=== PATIENT | male | born 1965 | race Caucasian/White ===

== ENCOUNTER 2019-04-18 20:19 | Emergency (ER) | payer MEDICAID ==
[~2019-04-18] VITALS: Ht 182.9 cm; Wt 98.4 kg
[~2019-04-18 20:19] MED LIST: ATEN-169 PO
[2019-04-18] MEDS ORDERED: naproxen 500mg tablet PO ONE ×2 (21:10→21:15)
[2019-04-18] MEDS ORDERED: cyclobenzaprine 10mg tablet PO ONE (21:15)
[2019-04-18] MEDS ORDERED: CYCL-1 PO (21:19)
[2019-04-18] MEDS ORDERED: NAPR-56 PO (21:19)
[2019-04-18 21:26] VITALS: BP 139/96
== END 2019-04-18 21:27 | disposition home or self-care (01) ==
LOC: ER 20:20
DX: M79.18 Myalgia, other site (principal); M25.511 Pain in right shoulder; Z56.0 Unemployment, unspecified; Z79.899 Other long term (current) drug therapy
CPT/HCPCS: 99283